=== PATIENT | female | born 2000 | race Caucasian/White ===

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

== ENCOUNTER → 2021-01-01 12:53 | Outpatient (CLI) | payer OTHER, SELFPAY ==
[2021-01-01 13:18] LABS: Appearance Urine UA CLEAR; Bilirubin Urine UA NEGATIVE (NEGATIVE); Color Urine UA YELLOW; Glucose Urine UA NEGATIVE (Negative); Ketones Urine UA NEGATIVE (NEGATIVE); Leukocyte Esterase Urine UA 1+ (NEGATIVE); Nitrite Urine UA NEGATIVE (Negative); Occult Blood Urine UA NEGATIVE (Negative); Protein Urine UA NEGATIVE (Negative); Specific Gravity Urine UA 1.015 (1.000-1.035); Urobilinogen Urine UA 0.2 E.U./dL (0.2)
[2021-01-01 13:39] LABS: pH Urine UA 7.5 (4.5-8.0)
[2021-01-01 13:41] LABS: Bacteria Urine Occasional (0-1); Culture Indicated Urine Specimen Cultured; RBC Urine None Seen (0-5/HPF); Squamous Epithelial Cell Urine 1-5 /HPF (0-5/HPF); WBC Urine 1-5/HPF (0-5/HPF)
== END ==
PROVIDERS: PCP Family Medicine; Referring Provider Family Medicine; Visit Provider Family Medicine
DX: R30.0 Dysuria (principal); N89.8 Other specified noninflammatory disorders of vagina; Z34.90 Encounter for supervision of normal pregnancy, unspecified, unspecified trimester
CPT/HCPCS: 81001; 87086

== ENCOUNTER → 2021-02-05 09:26 | Outpatient (CLI) | payer OTHER, SELFPAY ==
--- NOTE | 2021-02-05 09:28 | DI.US.S_ITS ---
PROCEDURE: US OB FOLLOW UP INDICATIONS: f/u Anatomy Scan OUTSIDE/PRIOR DATING DATA: Last menstrual period (LMP): Unknown. LMP-based estimated date of delivery (MADHAV): Unknown. First dating scan (date and location): 12/22/2020. Estimated date of delivery (MADHAV) from first dating scan: 05/04/2021. TECHNIQUE: Real-time scanning was performed of the fetus, with image documentation. COMPARISON: [facility], , OB >= 14 WEEKS FETUS, 12/22/2020, 15:58. FINDINGS: A single living intrauterine gestation is present. Presentation: Breech/oblique Placenta: Placental position is posterior,, without previa. Amniotic fluid index: 15.8 cm, normal range is 5-24 cm. heart rate: 117 beats per minute. Maternal cervical canal: 3.6 cm long. Normal lower limit is 2.5 cm. Estimated gestational age from initial scan: 27 weeks, 3 days. Fetus remains facing down most of the exam, evaluation of facial profile, four-chamber heart and outflow tracts are limited. IMPRESSION: Single live intrauterine with fetus in breech/oblique presentation. heart rate is 117 beats per minute. Normal amount of amniotic fluid. Fetus remains facing down most of the study with limited evaluation of facial profile, four-chamber heart and outflow tracts. Dictated by: Luisito Munoz M.D. on 02/05/2021 at 12:50 Approved by: Luisito Munoz M.D. on 02/05/2021 at 12:52
== END ==
PROVIDERS: PCP Family Medicine; Referring Provider Family Medicine; Visit Provider Family Medicine
DX: Z3A.27 27 weeks gestation of pregnancy; Z36.2 Encounter for other antenatal screening follow-up
CPT/HCPCS: 76816

== ENCOUNTER → 2021-02-17 14:33 | Outpatient (CLI) | payer OTHER, SELFPAY ==
[2021-02-17 16:19] LABS: Add Manual Diff / Slide Review NO; Basophils Absolute Auto 0 /uL (0-100); Basophils Percent Auto 0.2 % (0-2); Eosinophils Absolute Auto 100 /uL (0-450); Eosinophils Percent Auto 0.8 % (2-4); Hematocrit 31.3 % (36-46); Hemoglobin 10.8 g/dL (12.0-16.0); Lymphocytes Absolute Auto 1400 /uL (1100-4500); Lymphocytes Percent Auto 16.7 % (25-40); Mean Corpuscular HGB Conc 34.4 % (30-36); Mean Corpuscular Hemoglobin 30.8 PG (26-34); Mean Corpuscular Volume 89.7 fL (80-100); Monocytes Absolute Auto 800 /uL (0-900); Monocytes Percent Auto 9.1 % (3-14); Neutrophils Absolute Auto 6200 /uL (1500-7000); Neutrophils Percent Auto 73.2 % (50-75); Platelet Count 165 X10^3/uL (150-400); Red Blood Cell Count 3.49 X10^6/uL (4.0-5.2); Red Cell Distribution Width 12.8 % (11.6-14.8); White Blood Cell Count 8.5 X10^3/uL (4.5-11.0)
[2021-02-17 17:47] LABS: GTT (PREG) 1 Hour PP 50gm Dose 93 mg/dL (76-139)
== END ==
PROVIDERS: PCP Family Medicine; Referring Provider Family Medicine; Visit Provider Family Medicine
DX: Z34.90 Encounter for supervision of normal pregnancy, unspecified, unspecified trimester (principal)
CPT/HCPCS: 36415; 82950; 85025

== ENCOUNTER → 2021-02-23 14:30 | Outpatient (CLI) | payer OTHER, SELFPAY ==
--- NOTE | 2021-02-23 14:31 | DI.US.S_ITS ---
PROCEDURE: US OB FOLLOW UP INDICATIONS: anatomy scan and 02/05 US f/u OUTSIDE/PRIOR DATING DATA: Last menstrual period (LMP): Unknown. LMP-based estimated date of delivery (MADHAV): Not applicable First dating scan (date and location): 12/22/2020. Estimated date of delivery (MADHAV) from first dating scan: 05/04/2021. TECHNIQUE: Real-time scanning was performed of the fetus, with image documentation. Endovaginal scanning: No COMPARISON: [facility], OB FOLLOW UP, 02/05/2021, 10:12. FINDINGS: A single living intrauterine gestation is present. Presentation: Breech. Placenta: Placental position is posterior, without previa. Lower placental edge 0.5 to 3 cm from internal cervical os qualifies as low lying placenta. Marginal previa is defined as lower edge 0 to 0.5 mm from internal os. heart rate: 149 beats per minute. Maternal cervical canal: 3.6 cm long. Normal lower limit is 2.5 cm. Estimated gestational age from initial scan: 30 weeks 0 days Current survey of anatomy is limited by distention lay bernstein position. Limited evaluation of the heart and profile is grossly unremarkable. IMPRESSION: 1. Single living intrauterine gestation. 2. Limited evaluation of the heart and profile which is grossly normal as visualized. Dictated by: Guzman Gentile M.D. on 02/23/2021 at 16:46 Approved by: Guzman Gentile M.D. on 02/23/2021 at 16:50
== END ==
PROVIDERS: PCP Family Medicine; Referring Provider Family Medicine; Visit Provider Family Medicine
DX: Z3A.30 30 weeks gestation of pregnancy; Z36.2 Encounter for other antenatal screening follow-up
CPT/HCPCS: 76816

== ENCOUNTER → 2021-04-21 12:22 | Outpatient (CLI) | payer OTHER, SELFPAY ==
[2021-04-22 10:23] LABS: Strep Grp B PCR NEG for Grp B Strep
== END ==
PROVIDERS: PCP Family Medicine; Visit Provider Family Medicine
DX: Z36.85 Encounter for antenatal screening for Streptococcus B (principal); Z3A.37 37 weeks gestation of pregnancy
CPT/HCPCS: 87653

== ENCOUNTER 2021-05-02 17:28 | Inpatient (IN) | payer OTHER, SELFPAY ==
[2021-05-02 18:39] VITALS: BP 119/73
[2021-05-02 20:07] LABS: COVID19 -Nasal RAPID Negative (Negative)
[2021-05-02 20:48] LABS: Add Manual Diff / Slide Review NO; Basophils Absolute Auto 0 /uL (0-100); Basophils Percent Auto 0.1 % (0-2); Eosinophils Absolute Auto 0 /uL (0-450); Hematocrit 32.3 % (36-46); Hemoglobin 10.7 g/dL (12.0-16.0); Lymphocytes Absolute Auto 1900 /uL (1100-4500); Lymphocytes Percent Auto 15.4 % (25-40); Mean Corpuscular Hemoglobin 28.2 PG (26-34); Mean Corpuscular Volume 85.3 fL (80-100); Monocytes Absolute Auto 800 /uL (0-900); Monocytes Percent Auto 6.4 % (3-14); Neutrophils Absolute Auto 9800 /uL (1500-7000); Neutrophils Percent Auto 78.1 % (50-75); Platelet Count 178 X10^3/uL (150-400); Red Blood Cell Count 3.78 X10^6/uL (4.0-5.2); Red Cell Distribution Width 12.7 % (11.6-14.8); White Blood Cell Count 12.6 X10^3/uL (4.5-11.0)
[2021-05-02] MEDS: LACTATED RINGERS 1,000 ML 100 ML IV (22:15)
--- NOTE | 2021-05-02 22:51 | PM.AN.REGBLK ---
Regional Block Pre-procedure Procedure: Continuous Lumbar Epidural for L&D Attending OB provider: Dieter Krishnan PMH/ROS narrative: . Afraid of needles. Hx: No personal or family history of anesthesia problems. PSH/Anesthesia history narrative: none Exam narrative: MP1, RRR, CTAB ASA Class: II Labs: Hct 32.3 % (36-46) L 05/02/21 19:20 Plt Count 178 X10^3/uL (150-400) 05/02/21 19:20 Medications: Current Medications Generic Name Dose Route Start Last Admin Trade Name Freq PRN Reason Stop Dose Admin Carboprost Tromethamine 250 mcg 05/02/21 20:36 Carboprost 250 Mcg/Ml Ampul IM Q90M PRN Bleeding Fentanyl 50 mcg 05/02/21 20:36 Fentanyl 100 Mcg/2 Ml Inj IV Q1H PRN Pain, Moderate (4-6) Lactated Ringer's 1,000 mls @ 100 mls/hr 05/02/21 20:45 Lactated Ringers IV CONT MAXINE Oxytocin/Lactated Ringer's 30 unit in 500 mls @ 200 mls/hr 05/02/21 20:36 Oxytocin Premix IV CONT PRN Bleeding Protocol Tranexamic Acid 1,000 mg/ 100 mls @ 200 mls/hr 05/02/21 20:36 Sodium Chloride IV NOW PRN Bleeding Methylergonovine Maleate 0.2 mg 05/02/21 20:36 Methylergonovine 0.2 Mg Tablet PO Q6HR PRN Heavy Bleeding Methylergonovine Maleate 0.2 mg 05/02/21 20:36 Methylergonovine 0.2 Mg/Ml Vial IM NOW PRN Bleeding Misoprostol 800 mcg 05/02/21 20:36 Misoprostol 200 Mcg Tablet OR NOW PRN Bleeding Misoprostol 1,000 mcg 05/02/21 20:36 Misoprostol 200 Mcg Tablet OR NOW PRN Bleeding Misoprostol 400 mcg 05/02/21 20:36 Misoprostol 200 Mcg Tablet SL NOW PRN Bleeding Ondansetron HCl 4 mg 05/02/21 20:36 Ondansetron 4 Mg/2 Ml Inj IV Q4HR PRN Nausea And Vomiting Oxytocin 10 unit 05/02/21 20:36 Oxytocin 10 Unit/Ml Vial IM NOW PRN Bleeding Allergies: Allergies Allergy/AdvReac Type Severity Reaction Status Date / Time No Known Drug Allergies Allergy Verified 10/27/20 14:04 Procedure Insertion time: 22:36 Prep/Local: betadine x3 (chloroprep) and 1% lidocaine Interspace: L2-3 Patient position: sitting Needle: 18 gauge Hustead (with 27G pencil point needle-through needle for IT dose) Loss of resistance with: saline (with air bubble) DIGNA at (cm): 6 Catheter placed at SKIN (cm): 11 Catheter in SPACE (cm): 5 Insertion: Yes CSF, No Blood, No Paresthesia with insertion, No Paresthesia with injection and No Test dose reaction Initial Medications TEST DOSE time: 22:37 TEST DOSE: 1.5% lidocaine with epinephrine 1:200k (mL): 5 (3mL initial test dose, 2mL as part of first bolus) BOLUS DOSE time: 22:38 BOLUS DOSE (mL): 2 BOLUS DOSE med: other (10mcg fentanyl intrathecally, 90mcg fentanyl via epidural catheter) Infusion INFUSION: 0.0625% bupivacaine and with fentanyl 2 mcg/mL Initial rate (mL/hr): 12 (with bolus of 5mL Q15min lockout) Post-procedure Anesthesia time START: 22:21 Anesthesia time END: 08:24 Post-procedure Anesthesia Assessment: No Anesthesia complications
[2021-05-03] MEDS: OXYTOCIN PREMIX 30 UNIT/500 ML PLAST..BAG IV (01:00)
[2021-05-03] MEDS: LACTATED RINGERS 1,000 ML 100 ML IV (02:52)
[2021-05-03] MEDS: FENT 2MCG/ML BUPIV 0.125% EPI 200 MCG/100 ML PLAST..BAG 12 MCG EPIDURAL (05:28)
--- NOTE | 2021-05-03 09:10 | P.HPOB_ITS ---
OB HPI Date/Time Date of admission: 05/03/21 Date Patient Seen: 05/03/21 Time Patient Seen: 07:30 History of Present Condition Chief complaint: L&D MADHAV Calculator Estimated Delivery Date Method Current WG Current Estimate 05/08/21 LMP (Uncertain) 39w 2d Other Estimates 05/04/21 Ultrasound #1 39w 6d Estimated Gestational Age (weeks): 39w2d : 1 Para: 0 Narrative: 21yo at 39w2d here with ROM. Pt reports leaking fluid starting around 4pm yesterday. She had mild cramping at the time, no significant contractions until in the hospital. No vaginal bleeding. She is feeling her baby move regularly. Her has been uncomplicated. care: good care, initiated at week # (8) and pounds weight gain (57) Dating criteria OB: LMP confirmed by 1st trimester US Ultrasounds: normal 1st trimester US and normal mid trimester US Obstetrical complications: none Medical complications OB: none Preadmission Labs Last OB Lab Results: Blood Type O Positive 05/02/21 19:05/02/21 Antibody Screen Negative 05/02/21 19:20 05/02/21 Hematocrit 32.3 % (36-46) L 05/02/21 19:20 05/02/21 Hemoglobin 10.7 g/dL (12.0-16.0) L 05/02/21 19:20 05/02/21 Hepatitis B Surface Antigen Negative s/c (NEGATIVE) 09/29/20 16:09 09/29/20 Hepatitis C Antibody Negative s/c (NEGATIVE) 09/29/20 16:09 09/29/20 Rubella Antibody 14.0 IU/mL (>15) L 09/29/20 16:09 09/29/20 Varicella-Zoster IgG Antibody 562 index (Immune >165) 09/29/20 16:09 09/29/20 Glucose 1 Hour 93 mg/dL (76-139) 02/17/21 15:38 02/17/21 Group B Streptococcus (PCR) Neg for grp b strep 04/21/21 12:22 04/21/21 -: Chlamydia screen: negative, Gonorrhea screen: negative and Urine: negative Genetic Screens: Quad screen: Normal External Labs -: Urine: negative Evaluation Evaluation Baseline heart rate: 120 Variability: Moderate (11-25) monitor accelerations: Present Monitor Decelerations: Absent Contraction Frequency (minutes): 2 Status: Category l Dilation (cm): 10 Effacement (%): 100 station: +2 PFSH Medical History Carrier of hemochromatosis HFE gene mutation Nose fracture UTI (urinary tract infection) Surgical History No significant past surgical history Family History Father Hemochromatosis Mother Hemochromatosis Grandfather No problems noted. Grandmother Drug addict Grandfather No problems noted. Grandmother No problems noted. Brother Hemochromatosis Sister Hemochromatosis Social History marital status: unmarried,living together household members: significant other lives independently: Yes housing: apartment pets and animals: No education level: high school occupational status: employed current occupational exposures/hazards: Yes special leonel needs: No Smoking Status: Former smoker Tobacco: How many years used: 1 Smokeless tobacco user: dissolvable tobacco second hand exposure: No alcohol intake: never substance use type: does not use Type(s) of exercise: walking and irregular exercise Meds Home Medications and Allergies Home Medications Medication Instructions Recorded Confirmed Type prenat.vits,rohini,alu-cifh-xvijq 1 tab PO DAILY 09/23/20 05/03/21 History ferrous sulfate 1 tab PO DAILY 02/18/21 05/03/21 History Allergies Allergy/AdvReac Type Severity Reaction Status Date / Time No Known Drug Allergies Allergy Verified 10/27/20 14:04 OB Exam Narrative Exam Narrative: Gen: NAD, laying comfortably in bed, appears well CV: RRR, no murmurs Resp: clear to auscultation bilaterally Abd: soft, gravid Ext: trace edema Objective Labs Result Diagrams: 05/02/21 19:20 Labs: Laboratory Results - last 24 hr 05/02/21 05/02/21 05/02/21 18:40 19:20 19:20 WBC 12.6 H RBC 3.78 L Hgb 10.7 L Hct 32.3 L MCV 85.3 MCH 28.2 MCHC 33.0 RDW 12.7 Plt Count 178 Neut % (Auto) 78.1 H Lymph % (Auto) 15.4 L [place] % (Auto) 6.4 Eos % (Auto) 0.0 L Baso % (Auto) 0.1 Neut # (Auto) 9800 H Lymph # (Auto) 1900 [place] # (Auto) 800 Eos # (Auto) 0 Baso # (Auto) 0 SARS-CoV-2 (PCR) Negative Blood Type O Positive Antibody Screen Negative Assessment and Plan Assessment and Plan Assessment and Plan narrative: 21yo at 39w2d here with PROM at home, now in active labor with pitocin augmentation due to no significant cervical change prior to initiation. GBS negative, Rh positive. No complications with . - Expectant management anticipate - FHT reassuring - Start pushing now - GBS negative, no prophylaxis - Epidural in place for pain control
--- NOTE | 2021-05-03 09:10 | PM.OBPRVD ---
Labor & Delivery Delivery date: 05/03/21 Intrapartal Events: None Cervical ripening method: none Induction method: none Delivery augmentation: pitocin Delivery monitor: external FHT Route of delivery: Episiotomy description: None L&D Laceration Description: Labial Delivery repair: chromic Estimated blood loss (mL): 100 Anesthesia Type: Epidural Complications: None Narrative: PROCEDURE: at 39w2d presented with PROM and was admitted to Labor and Delivery. The patient progressed through the 1st stage over 13 hours. Pain was controlled with an epidural. Pitocin was initiated due to lack of cervical change despite regular contractions. The patient progressed through the 2nd stage over 30 minutes and delivered a viable male infant with APGARs 9/9 at 8:24am via without complications. The cord was clamped and cut after it stopped pulsating. The perineum and vagina were inspected with left labial laceration repaired with 3-O Chromic. PREPROCEDURE DIAGNOSIS: Intrauterine at 39w2d GBS negative RH positive POSTPROCEDURE DIAGNOSIS: Intrauterine at 39w2d, delivered Same as preprocedure [place] [facility] 1: Infant gender: Male Presentation: vertex Position: Left Occiput Anterior Placenta delivery description: Spontaneous Cord Vessel Description: 3 Vessels score (1 min): 9 score (5 min): 9 weight: 7 lb 13.223 oz Plan for aftercare: Routine care
[2021-05-03] MEDS: IBUPROFEN 600 MG TABLET PO ×2 (12:42→18:19)
[2021-05-03] MEDS: ACETAMINOPHEN 325 MG TABLET 650 MG PO ×2 (12:42→18:19)
[2021-05-03] MEDS: PRENATAL VIT,CALC/IRON/FOLIC 1 TABLET 1 TAB PO (14:59)
[2021-05-03] MEDS: DERMOPLAST SPRAY 20% 60 ML 1 SPRAY TOP (15:30)
[2021-05-04] MEDS: ACETAMINOPHEN 325 MG TABLET 650 MG PO ×2 (00:29→07:28)
[2021-05-04] MEDS: IBUPROFEN 600 MG TABLET PO ×2 (00:30→07:27)
--- NOTE | 2021-05-04 08:39 | P.DS_ITS ---
Discharge Providers Provider Date of admission: 05/02/21 17:28 Discharge Date: 05/04/21 Primary care physician: Mecca Hanks MD Consults: 05/04/21 09:[address] [employer] Routine Comment: Discharge provider: Mecca Hanks MD Summary Hospital Course Date Patient Seen: 05/04/21 Time Patient Seen: 08:00 Diagnoses: Intrauterine at 39w2d GBS negative RH positive Hospital Course: The pt presented with PROM. She progressed into active labor, with pitocin for augmentation. She had an epidural for pain control. She progressed to complete and had an of a viable baby boy on 05/03/21. A left labial laceration was then repaired. , there were no complications. At the time of discharge she was voiding, ambulating, and passing flatus without difficulty. Her lochia was decreasing appropriately. Her pain was well controlled. She was with good latch. She will f/u for 6wk check. Peripartum Data Infant Delivery Method: Natural Vaginal Laceration Description: Labial Episiotomy description: None Procedures: Spontaneous vaginal delivery complications: none [place] 1: Gender: Male Disposition of : home Discharge Diagnosis (1) Spontaneous vaginal delivery: Status: Acute Status at Discharge Cognitive/behavioral status at discharge: oriented Functional status at discharge: independent ambulation Overall status at discharge: patient is progressing back to baseline Time Spent with Patient Time attestation: Total time spent providing and/or coordinating discharge services: Objective Labs Result Diagrams: 05/02/21 19:20 Exam Narrative Exam Narrative: Gen: NAD, sitting comfortably in bed, appears well CV: RRR, no murmurs Resp: clear to auscultation bilaterally Abd: soft, appropriately tender, fundus firm and below the umbilicus, nondistended Ext: no edema Discharge Plan Discharge Plan Patient Disposition: Home Discharge orders & Medications Prescriptions: New acetaminophen 325 mg Tablet 650 mg PO Q6HR PRN (Reason: Pain, Mild (1-3)) Qty: 30 0RF docusate sodium 100 mg Capsule 100 mg PO DAILY Qty: 30 0RF ibuprofen 600 mg Tablet 600 mg PO Q6HR PRN (Reason: Pain, Mild (1-3)) Qty: 30 0RF Continued ferrous sulfate 1 tab PO DAILY 0RF prenat.vits,rohini,ycy-wquu-fffsa Tablet 1 tab PO DAILY 0RF Follow up/Referrals: Mecca Hanks MD [Primary Care Provider] - 6 Weeks (Please follow up with Dr. Hanks on June 14 at @2:00PM ) Diet/Activity/Treatments Diet: Diet as Tolerated and Regular Skin/Wound/Dressing Care Report to your healthcare provider any signs of infection, such as:: chills, fever, increased pain and unusual drainage Visit Report/Discharge Packet Instructions: DI for Labor and Delivery, Vaginal Stand Alone Forms: Discharge: Care Visit Report Forms: Patient Portal/API, Stroke Signs & Symptoms Discharge Data Primary Care Provider: Mecca Hanks Discharges patient from system. Discharge Date/Time: 05/04/21 10:40
[2021-05-04 09:31] VITALS: BP 100/64; PULSE 76; RESP 20; TEMP 36.9
[2021-05-04 10:01] VITALS: BP 100/64; PULSE 76; RESP 20; TEMP 36.9
[2021-05-04] MEDS: MEASLES,MUMPS,RUBELLA VACC/PF 0.5 ML VIAL SUBCUT (10:07)
== END 2021-05-04 10:40 | disposition home or self-care (01) | DRG 807 ==
PROVIDERS: Admitting Provider Obstetrics & Gynecology; PCP Family Medicine; Referring Provider Obstetrics & Gynecology; Visit Provider Obstetrics & Gynecology
DX: O42.02 Full-term premature rupture of membranes, onset of labor within 24 hours of rupture (principal); Z37.0 Single live birth; Z3A.39 39 weeks gestation of pregnancy; O70.0 First degree perineal laceration during delivery; Z20.822 Contact with and (suspected) exposure to COVID-19
CPT/HCPCS: 01967; 36415; 59050; 59400; 85025; 86850; 86900; 86901; 87635; C9803; G0379; J2590; J3010

== ENCOUNTER → 2021-05-07 10:30 | Outpatient (CLI) | payer OTHER, SELFPAY ==
[2021-05-07 11:25] LABS: Add Manual Diff / Slide Review NO; Basophils Absolute Auto 0 /uL (0-100); Basophils Percent Auto 0.5 % (0-2); Eosinophils Absolute Auto 0 /uL (0-450); Eosinophils Percent Auto 0.6 % (2-4); Hematocrit 32.6 % (36-46); Lymphocytes Absolute Auto 1100 /uL (1100-4500); Lymphocytes Percent Auto 13.8 % (25-40); Mean Corpuscular HGB Conc 33.7 % (30-36); Mean Corpuscular Volume 86.1 fL (80-100); Monocytes Absolute Auto 500 /uL (0-900); Monocytes Percent Auto 6.1 % (3-14); Neutrophils Absolute Auto 6400 /uL (1500-7000); Platelet Count 185 X10^3/uL (150-400); Red Blood Cell Count 3.79 X10^6/uL (4.0-5.2); Red Cell Distribution Width 13.5 % (11.6-14.8); White Blood Cell Count 8.1 X10^3/uL (4.5-11.0)
[2021-05-07 11:43] LABS: Alanine Aminotransferase 17 IU/L (<35); Albumin 3.2 g/dL (3.5-5.0); Albumin Globulin Ratio 1.1 (1.0-2.8); Alkaline Phosphatase 76 U/L (38-126); Aspartate Aminotransferase 24 IU/L (14-36); Bilirubin Total 0.4 mg/dL (0.2-1.3); Blood Urea Nitrogen 11 mg/dL (7-17); Calcium 9.1 mg/dL (8.4-10.2); Carbon Dioxide 28 mmol/L (22-32); Chloride 108 mmol/L (98-107); Estimated Glomerular Filt Rate > 60.0 mL/min (>60); Glucose 83 mg/dL (70-100); HEMOLYSIS < 15 (0-50); Lipase 42 U/L (23-300); Potassium 4.4 mmol/L (3.4-5.1); Sodium 137 mmol/L (137-145); Total Protein 6.2 g/dL (6.3-8.2)
== END ==
PROVIDERS: PCP Family Medicine; Referring Provider Physician Assistant; Visit Provider Physician Assistant
DX: R10.11 Right upper quadrant pain (principal)
CPT/HCPCS: 36415; 80053; 83690; 85025